=== PATIENT | female | born 1960 | race Caucasian/White ===

== ENCOUNTER 2017-12-27 10:58 | Emergency (ER) | payer OTHER, SELFPAY ==
[2017-12-27 11:14] VITALS: BP 140/91; PULSE 82; RESP 16; TEMP 36.6; O2SAT 99; BMI 28.0
[2017-12-27 11:35] VITALS: BP 143/100; PULSE 81; O2SAT 100
--- NOTE | 2017-12-27 11:39 | ED_ITS ---
HPI - Head Injury General Chief complaint: Head Injury Stated complaint: POSSIBLE CONCUSSION Time Seen by Provider: 12/27/17 11:21 Source: patient Mode of arrival: ambulatory Limitations: no limitations History of Present Illness HPI Narrative: Patient is a 56-year-old female who presents after a closed head injury. She actually does not remember the incident. 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 The paper seem to be quite stuck and she was pulling. There was a teacher in the room who suddenly asked he was okay. She does not remember what happened but she did have quite a severe headache either before or after. She said that she has only had coffee and no today to eat she has not yet had her breakfast. She really has no recollection of the incident she denies any chest pain or heart palpitations no dizziness. She now feels nauseated but has no other focal deficits no visual changes weakness. Related Data Home Medications Medication Instructions Recorded Confirmed albuterol sulfate [Ventolin HFA] 1 puff INHALATION DIRECTED 12/27/17 12/27/17 atorvastatin 1 tab PO DAILY 12/27/17 12/27/17 beclomethasone dipropionate [Qvar 1 puff INHALATION BID 12/27/17 12/27/17 RediHaler] bupropion HCl 1 tab PO DAILY 12/27/17 12/27/17 hydrochlorothiazide 1 tab PO DAILY 12/27/17 12/27/17 lisinopril 40 mg PO DAILY 12/27/17 12/27/17 Allergies Allergy/AdvReac Type Severity Reaction Status Date / Time No Known Drug Allergies Allergy Verified 12/27/17 11:14 Review of Systems Review of Systems All systems reviewed & are unremarkable except as noted in HPI and below Constitutional Denies chills, Denies fever(s), Denies lethargy and Denies weakness Eyes Denies change in vision, Denies eye discharge, Denies irritation and Denies loss of vision Cardiovascular Reports syncope, Denies dyspnea and Denies dyspnea on exertion Respiratory Denies cough, Denies dyspnea, Denies dyspnea on exertion and Denies wheezing Gastrointestinal Gastrointestinal: Denies abdominal pain, Denies change in bowel habits, Denies diarrhea, Denies nausea and Denies vomiting Musculoskeletal Denies back pain, Denies muscle weakness, Denies numbness and Denies tingling Integumentary/Breasts Denies pruritus, Denies erythema, Denies rash and Denies wounds Neurologic Reports as per HPI, Reports confusion, Reports syncope, Denies loss of vision, Denies numbness, Denies tingling and Denies weakness Psychiatric Reports confusion Allergic/Immunologic Denies wheezing [facility] Medical History Hyperlipidemia (Acute) Hypertension (Acute) Exam Initial Vital Signs Initial Vital Signs: Vital Signs Temperature 97.8 F 12/27/17 11:14 Pulse Rate 82 12/27/17 11:14 Respiratory Rate 16 12/27/17 11:14 Blood Pressure 140/91 H 12/27/17 11:14 Pulse Oximetry 99 12/27/17 11:14 GENERAL: Well-appearing, well-nourished and in no acute distress. HEENT: Head atraumatic, I do not appreciate any swelling contusion abrasion depression is crepitation she cannot pinpoint where hurts. EOMI, pupils reactive, face symmetric, moist mucous membranes Neck: Supple CARDIOVASCULAR: Regular rate and rhythm without murmurs, rubs or gallops. RESPIRATORY: Breath sounds equal bilaterally, no wheezes rales or rhonchi. ABDOMEN: Soft, nontender. Normoactive bowel sounds all 4 quadrants. No guarding or rebound. EXTREMITIES: Normal range of motion, no clubbing or edema. Neurovascularly intact NEUROLOGICAL: Alert and oriented x4.Normal gait and speech. Cranial nerves II through XII grossly intact. Good [id number], good [id number], strength equal bilaterally, no dysarthria or aphasia, sensation in tact to soft touch bilaterally, no visual changes, no facial droop SKIN: Warm, dry, no laceration, no petechiae, no rashes or lesions. Scores NIH Stroke Scale Level of Conciousness: Alert, keenly responsive Ask month/age: Answers both questions correctly. Open/close eyes, close hand: Performs both tasks correctly Best gaze horizontal: Normal Visual diamond: No visual loss Facial palsy: Normal symetrical movement Left arm drift: No drift for full 10 sec Right arm drift: No drift for full 10 sec Left leg drift: No drift for full 10 sec Right leg drift: No drift for full 10 sec Limb ataxia: Absent Sensory on face/arms/legs: Normal, no sensory loss Best language: No aphasia, normal Dysarthria: Normal Extinction or inattention: No abnormality Total NIH Stroke scale score: 0 Course Orders Ordered: ED Orders 12/27/17 11:50 Complete Blood Count AUTO DIFF Stat Comprehensive Metabolic Panel Stat Troponin & CK Cardiac Panel Stat 12/27/17 11:52 CT head/brain wo con Stat Vital Signs - 8 hr 12/27/17 11:14 12/27/17 11:35 12/27/17 12:28 Temperature 97.8 F Pulse Rate 82 81 75 Respiratory Rate 16 19 Blood Pressure 140/91 H Blood Pressure [Left Arm] 143/100 H 135/82 Pulse Oximetry 99 100 100 12/27/17 12:34 Temperature Pulse Rate 71 Respiratory Rate 12 Blood Pressure Blood Pressure [Left Arm] 128/85 Pulse Oximetry 100 MDM - Head Injury Medical Records Attestation: I reviewed the patient's medical records. Lab Data Attestation: I reviewed the patient's lab results. Result diagrams: 12/27/17 11:50 12/27/17 11:50 Lab Results 12/27/17 12/27/17 Range/Units 11:50 11:50 WBC 5.2 (4.5-11.0) X10^3/uL RBC 4.19 (4.0-5.2) X10^6/uL Hgb 13.0 (12.0-16.0) g/dL Hct 37.6 (36-46) % MCV 89.9 (80-100) fL MCH 31.1 (26-34) PG MCHC 34.6 (30-36) % RDW 12.6 (11.6-14.8) % Plt Count 270 (150-400) X10^3/uL Neut % (Auto) 56.8 (50-75) % Lymph % (Auto) 22.1 L (25-40) % [place] % (Auto) 11.4 (3-14) % Eos % (Auto) 8.3 H (2-4) % Baso % (Auto) 1.4 (0-2) % Neut # (Auto) 2900 L (5942-2448) /uL Sodium 138 (137-145) mmol/L Potassium 3.9 (3.4-5.1) mmol/L Chloride 99 (98-107) mmol/L Carbon Dioxide 29 (22-32) mmol/L BUN 15 (7-17) mg/dL Creatinine 0.70 (0.52-1.04) mg/dL Estimated GFR > 60.0 (>60) mL/min BUN/Creatinine Ratio 21.4 (6-22) Glucose 98 (70-100) mg/dL Calcium 9.5 (8.4-10.2) mg/dL Total Bilirubin 0.9 (0.2-1.3) mg/dL AST 24 (14-36) IU/L ALT 35 (9-52) IU/L Alkaline Phosphatase 102 (38-126) U/L Total Creatine Kinase 76 (30-135) U/L Troponin I < 0.012 (0.01-0.034) ng/mL Total Protein 7.6 (6.3-8.2) g/dL Albumin 4.5 (3.5-5.0) g/dL Globulin 3.1 (1.7-4.1) g/dL Albumin/Globulin Ratio 1.5 (1.0-2.8) Imaging Data CT scan - head: Radiologist's impression: PROCEDURE: CT HEAD/BRAIN WO CON INDICATIONS: syncope amnesia head injury TECHNIQUE: Noncontrast 4.5 mm thick angled axial sections acquired from the foramen magnum to the vertex, with coronal and sagittal reformats. For radiation dose reduction, the following was used: automated exposure control, adjustment of mA and/or kV according to patient size. COMPARISON: None. FINDINGS: Image quality: Excellent. CSF spaces: Basal cisterns are patent. No extra-axial fluid collections. Ventricles are normal in size and shape. Brain: No midline shift. No intracranial masses or hemorrhage. Dewitt-white matter interface is normal. Skull and face: Calvarium and visualized facial bones are intact, without suspicious lesions. Sinuses: Visualized sinuses and mastoids are clear. IMPRESSION: Normal for age, source of current symptoms is not seen. Dictated by: Yandel Harry M.D. on 12/27/2017 at 12:07 ECG Data Attestation: I personally reviewed and interpreted this ECG as follows: Interpretation: Normal sinus rhythm rate acute ST changes no T-wave inversions normal interval MDM Narrative Medical decision making narrative: Patient overall is feeling better. She still does not quite remember the incident and does not sound like she had a loss of consciousness for a very long period of time it is extremely brief. There is no sign of trauma on her head. The eye thinks she was bending down and trying to pull a paper out of the cough ER think is possible she had a vasovagal episode. Of blood work at EKG and CT head are all within normal limits. The patient feels ready and able to go home. Discharge Plan Departure Patient Disposition: Home Clinical Impression: Closed head injury, Amnesia, Near syncope Discharge Date/Time: 12/27/17 13:03 Interventions: ED Discharge Assessment Last Done: 12/27/17 13:02 Instructions: DI for Syncope in Adults (Fainting), DI for Amnesia Activity Restrictions/Additional Instructions: *You have been diagnosed with them fainting, closed-head injury, amnesia *What to do: You may or may not get the Memory back today. Head CT blood work and EKG are all within normal limits. This may have been due to positioning and activity. *Continue to take medications as directed *Follow up with your primary care provider in 2-3 days *Return to ER if you should have passing out, heart palpitations, persistent vomiting, weakness or any new, worsening or concerning symptoms Prescriptions: No Action atorvastatin 20 mg tablet 1 tab PO DAILY RF: 0 bupropion HCl 100 mg tablet extended release 12 hr 1 tab PO DAILY RF: 0 hydrochlorothiazide 25 mg tablet 1 tab PO DAILY RF: 0 albuterol sulfate [Ventolin HFA] 90 mcg/actuation HFA aerosol inhaler 1 puff Inhalation DIRECTED RF: 0 lisinopril 40 mg tablet 40 mg PO DAILY RF: 0 beclomethasone dipropionate [Qvar RediHaler] 80 mcg/actuation HFA aerosol breath activated 1 puff Inhalation BID RF: 0 Referrals: Tiff Ni ARNP [Primary Care Provider] -
--- NOTE | 2017-12-27 11:52 | DI.CT.S_ITS ---
PROCEDURE: CT HEAD/BRAIN WO CON INDICATIONS: syncope amnesia head injury TECHNIQUE: Noncontrast 4.5 mm thick angled axial sections acquired from the foramen magnum to the vertex, with coronal and sagittal reformats. For radiation dose reduction, the following was used: automated exposure control, adjustment of mA and/or kV according to patient size. COMPARISON: None. FINDINGS: Image quality: Excellent. CSF spaces: Basal cisterns are patent. No extra-axial fluid collections. Ventricles are normal in size and shape. Brain: No midline shift. No intracranial masses or hemorrhage. Dewitt-white matter interface is normal. Skull and face: Calvarium and visualized facial bones are intact, without suspicious lesions. Sinuses: Visualized sinuses and mastoids are clear. IMPRESSION: Normal for age, source of current symptoms is not seen. Dictated by: Yandel Harry M.D. on 12/27/2017 at 12:07 Approved by: Yandel Harry M.D. on 12/27/2017 at 12:08
[2017-12-27 12:01] LABS: Add Manual Diff / Slide Review NO; Basophils Percent Auto 1.4 % (0-2); Eosinophils Percent Auto 8.3 % (2-4); Hematocrit 37.6 % (36-46); Lymphocytes Percent Auto 22.1 % (25-40); Mean Corpuscular HGB Conc 34.6 % (30-36); Mean Corpuscular Hemoglobin 31.1 PG (26-34); Mean Corpuscular Volume 89.9 fL (80-100); Monocytes Percent Auto 11.4 % (3-14); Neutrophils Absolute Auto 2900 /uL (3000-5900); Neutrophils Percent Auto 56.8 % (50-75); Platelet Count 270 X10^3/uL (150-400); Red Blood Cell Count 4.19 X10^6/uL (4.0-5.2); Red Cell Distribution Width 12.6 % (11.6-14.8); White Blood Cell Count 5.2 X10^3/uL (4.5-11.0)
[2017-12-27 12:10] LABS: Alanine Aminotransferase 35 IU/L (9-52); Albumin 4.5 g/dL (3.5-5.0); Albumin Globulin Ratio 1.5 (1.0-2.8); Alkaline Phosphatase 102 U/L (38-126); Aspartate Aminotransferase 24 IU/L (14-36); BUN Creatinine Ratio 21.4 (6-22); Bilirubin Total 0.9 mg/dL (0.2-1.3); Blood Urea Nitrogen 15 mg/dL (7-17); Calcium 9.5 mg/dL (8.4-10.2); Carbon Dioxide 29 mmol/L (22-32); Chloride 99 mmol/L (98-107); Creatine Kinase 76 U/L (30-135); Estimated Glomerular Filt Rate > 60.0 mL/min (>60); Globulin 3.1 g/dL (1.7-4.1); Glucose 98 mg/dL (70-100); HEMOLYSIS < 15 (0-50); Potassium 3.9 mmol/L (3.4-5.1); Sodium 138 mmol/L (137-145); Total Protein 7.6 g/dL (6.3-8.2)
[2017-12-27 12:26] LABS: Troponin I < 0.012 ng/mL (0.01-0.034)
[2017-12-27 12:28] VITALS: BP 135/82; PULSE 75; RESP 19; O2SAT 100
[2017-12-27 12:34] VITALS: BP 128/85; PULSE 71; RESP 12; O2SAT 100
== END 2017-12-27 13:03 | disposition home or self-care (01) ==
PROVIDERS: Emergency Provider Emergency Medicine; PCP Nurse Practitioner
DX: S09.90XA Unspecified injury of head, initial encounter (principal); R41.3 Other amnesia; R55 Syncope and collapse; W22.8XXA Striking against or struck by other objects, initial encounter
CPT/HCPCS: 36591; 70450; 80053; 82550; 82553; 84484; 85025; 93005; 93010; 99283; 99285

== ENCOUNTER → 2022-05-30 15:52 | Outpatient (CLI) | payer OTHER, SELFPAY ==
--- NOTE | 2022-05-30 | DI.RAD.S_ITS ---
PROCEDURE: XR FOOT LT MIN 3V INDICATIONS: pain in left foot TECHNIQUE: 3 views of the foot were acquired. COMPARISON: None. FINDINGS: Bones: No fractures or dislocations. No suspicious bony lesions. Medial bunion and hallux valgus deformity. Soft tissues: No tibiotalar joint effusion. Achilles tendon appears normal. IMPRESSION: No fracture. No acute osseous lesion. If symptoms and/or clinical suspicion for pathology persists, further assessment with repeat radiographs (7-10 days) or advanced imaging (e.g. CT, MRI or bone scan) should be considered. Dictated by: Emmanuelle Arizmendi MD, PhD on 05/30/2022 at 16:21 Approved by: Emmanuelle Arizmendi MD, PhD on 05/30/2022 at 16:22
== END ==
PROVIDERS: PCP Nurse Practitioner; Referring Provider Nurse Practitioner Family; Visit Provider Nurse Practitioner Family
DX: M20.12 Hallux valgus (acquired), left foot (principal); M21.612 Bunion of left foot; M79.672 Pain in left foot
CPT/HCPCS: 73630

== ENCOUNTER → 2023-01-12 10:36 | Outpatient (CLI) | payer OTHER, SELFPAY ==
--- NOTE | 2023-01-12 | DI.RAD.S_ITS ---
PROCEDURE: XR CERVICAL SPINE 2V OR 3V INDICATIONS: Pain TECHNIQUE: 3 view(s) of the cervical spine were acquired. COMPARISON: None. FINDINGS: Bones: No fractures or dislocations to the the C7 level. Degenerative anterolisthesis and mild facet joint arthropathy at C2-3. Multilevel moderate disc height loss and endplate osteophytosis from C3 through C7. The lateral masses of C1 appear intact on the odontoid view. No suspicious bony lesions. Soft tissues: No prevertebral soft tissue swelling. IMPRESSION: 1. Multilevel spondylosis and spondylolisthesis. Consider cervical spine MRI for further detail. Dictated by: Shantel Sam M.D. on 01/12/2023 at 13:08 Approved by: Shantel Sam M.D. on 01/12/2023 at 13:10
== END ==
PROVIDERS: PCP Nurse Practitioner; Referring Provider Nurse Practitioner Family; Visit Provider Nurse Practitioner Family
DX: M47.812 Spondylosis without myelopathy or radiculopathy, cervical region (principal); M54.2 Cervicalgia; M43.12 Spondylolisthesis, cervical region
CPT/HCPCS: 72040